=== PATIENT | male | born 1950 | race Caucasian/White ===

== ENCOUNTER 2018-03-04 17:47 | Emergency (ER) | payer OTHER ==
[~2018-03-04] VITALS: Ht 177.8 cm; Wt 83.5 kg
--- NOTE | 2018-03-04 18:13 | ED CARDIAC/CP/PALPITATIONS ---
History of Present Illness General Chief Complaint: Chest Pain Stated Complaint: CP Source: patient Exam Limitations: no limitations Allergies Coded Allergies: NO KNOWN ALLERGIES (02/24/11) Reconcile Medications Ergocalciferol (Vitamin D2) (Vitamin D2) 50,000 UNIT CAPSULE 1 CAP PO QSUN SUPPLEMENT (Reported) Triage Note: PT STATES HE ATE A LITTLE AND THEN BEGAN TO HAVE BURNING IN HIS CHEST THAT RADIATED DOWN HIS LEFT ARM AND HE BEGAN TO SWEAT A LOT. PT STATES 40 MINUTES OF PAIN WITH SOME SOB. Triage Nurses Notes Reviewed? yes Onset: Gradual Duration: hour(s): Timing: single episode today Quality/Severity: moderate, burning Location: substernal Radiation: neck, LEFT ARM Prior Chest Pain/Card Workup: no prior cardiac workup HPI: 67YO male with hx of daily tobacco use presents to ED complaining of substernal chest pain beginning about 1 hour prior to arrival around 5 PM. Pain is described as burning, 7/10, radiating towards neck and left arm, constant. Pain is associated with nausea, diaphoresis, dyspnea. Patient has no history of similar symptoms in the past. Symptom onset was eggs with bread. Patient has never seen a tavern operator in the past. He denies abdominal pain, vomiting, syncope, numbness. (Meera BENITES,Kaylie Dow) Vital Signs & Intake/Output Vital Signs & Intake/Output Vital Signs Date Time Temp Pulse Resp B/P B/P Pulse O2 O2 Flow FiO2 Mean Ox Delivery Rate 03/04 2326 71 18 103/57 94 Room Air 03/04 2235 76 111/61 03/04 2128 98.6 74 18 114/55 96 Room Air 03/04 1852 98.0 76 18 147/77 96 Room Air 03/04 1757 97.6 64 20 166/85 96 Room Air ED Intake and Output 03/05 0000 03/04 1200 Intake Total Output Total Balance Patient 184 lb Weight Weight Reported by Patient Measurement Method (Michelle MCKEON,Ricky Collins) Past History Travel History Traveled to [place] past 21 day No Medical History Any Pertinent Medical History? see below for history Other Medical Hx: psoriasis Surgical History Surgical History: non-contributory Psychosocial History Who do you live with Spouse Services at Home None What is your primary language Luxembourgish Tobacco Use: Current Daily Use Daily Tobacco Use Amount/Type: => 5 Cigarettes daily ETOH Use: denies use Illicit Drug Use: denies illicit drug use Family History Hx Contributory? No (Meera BENITES,Kaylie Dow) Review of Systems Review of Systems Constitutional: Reports: see HPI. EENTM: Reports: no symptoms. Respiratory: Reports: see HPI. Cardiovascular: Reports: see HPI. GI: Reports: see HPI. Genitourinary: Reports: no symptoms. Musculoskeletal: Reports: no symptoms. Skin: Reports: no symptoms. Neurological/Psychological: Reports: no symptoms. Hematologic/Endocrine: Reports: no symptoms. Immunologic/Allergic: Reports: no symptoms. All Other Systems: Reviewed and Negative (Meera BENITES,Kaylie Dow) Physical Exam Physical Exam General Appearance: well developed/nourished, no apparent distress, alert, awake Head: atraumatic, normal appearance Eyes: Bilateral: normal appearance. Ears, Nose, Throat: hearing grossly normal Neck: normal inspection, supple, full range of motion Respiratory: normal breath sounds, chest non-tender, no respiratory distress, lungs clear Cardiovascular: regular rate/rhythm, normal peripheral pulses Peripheral Pulses: 2+ radial (R), 2+ radial (L) Gastrointestinal: normal bowel sounds, soft, non-tender, no organomegaly Back: normal inspection, normal range of motion Extremities: normal inspection Neurologic/Psych: awake, alert, oriented x 3 Skin: intact, normal color, warm/dry Core Measures ACS in differential dx? Yes CVA/TIA Diagnosis No Sepsis Present: No Sepsis Focused Exam Completed? No (Meera BENITES,Kaylie Dow) Progress Differential Diagnosis: AMI, atrial fibrillation, CHF/pulm edema, costochondritis, musculoskeletal pain, myocarditis, pericarditis, pneumothorax, pulmonary embolism, PUD/GERD, unstable angina Diagnostic Imaging: Viewed by Me: Radiology Read. Discussed w/RAD: Radiology Read. CXR Impression: PATIENT: KANDIS DO PRESENT AGE: 67 PATIENT ACCOUNT NO: [id number] : 48 LOCATION: [facility] ORDERING PHYSICIAN: Kaylie BENITES SERVICE DATE: 03/04/18 EXAM TYPE: RAD - XRY- PORTABLE CHEST XRAY EXAMINATION: XR PORTABLE CHEST CLINICAL INFORMATION: Chest pain. COMPARISON: None TECHNIQUE: Portable frontal view of the chest was obtained. FINDINGS: The lungs are clear. No pleural effusion. Cardiomediastinal silhouette and pulmonary vasculature are within normal limits. No acute osseous finding. IMPRESSION: No acute cardiopulmonary disease. DICTATED BY: Spencer Yoon MD DATE/TIME DICTATED:03/04/181934 APPLICATION DBA:SANJAY DATE/TIME TRANSCRIBED:03/04/181934 CONFIDENTIAL, DO NOT COPY WITHOUT APPROPRIATE AUTHORIZATION. <Electronically signed in Other Vendor System> SIGNED BY: Spencer Yoon MD 03/04/181939 Initial ED EKG: SINUS RHYTHM @ 63BPM, INVERTED T WAVES LATERAL LEADS, RBBB Prior EKG: changed (2012) Repeat EKG: changed (UPRIGHT T WAVES LATERAL LEADS) (Meera BENITES,Kaylie Dow) Plan of Care: Orders Procedure Date/time Status EKG 03/04 2204 Active Add-on Test (ER Only) 03/04 2130 Active EKG 03/04 2115 Active TROPONIN LEVEL 03/04 2057 Complete EKG 03/04 2057 Active Telemetry/[place] 03/04 1813 Active PARTIAL THROMBOPLASTIN TIME 03/04 181 Complete PROTHROMBIN TIME 03/04 1813 Complete TROPONIN LEVEL 03/04 175 Complete LIPASE 03/04 175 Complete COMPREHENSIVE METABOLIC PANEL 03/04 175 Complete CBC WITHOUT DIFFERENTIAL 03/04 175 Complete AMYLASE 03/04 175 Complete EKG 03/04 175 Active Laboratory Tests 03/04/182114: Troponin I Cancelled 03/04/182109: Troponin I 0.28 *H 03/04/181812: Anion Gap 15, Estimated GFR > 60, BUN/Creatinine Ratio 12.2, Glucose 180 H, Calcium 9.7, Total Bilirubin 0.8, AST 25, ALT 30, Alkaline Phosphatase 86, Troponin I 0.02, Total Protein 8.0, Albumin 4.6, Globulin 3.4, Albumin/Globulin Ratio 1.4, Amylase 82, Lipase 67, PT 11.1, INR 1.02, APTT 33, CBC w Diff NO MAN DIFF REQ, RBC 5.39, MCV 95.2 H, MCH 32.8 H, MCHC 34.5, RDW 12.9, MPV 7.3 L, Gran % 65.6, Lymphocytes % 25.8, Monocytes % 4.7, Eosinophils % 3.5, Basophils % 0.4, Absolute Granulocytes 4.9, Absolute Lymphocytes 1.9, Absolute Monocytes 0.4 , Absolute Eosinophils 0.3, Absolute Basophils 0 Patient's initial EKG shows T-wave inversions in lateral leads. Patient's chest pain is convincing for cardiac etiology. Labs and chest x-ray are pending. Patient was medicated with aspirin 325 mg and morphine. Heart rate of 62, for this reason beta roel was held for the time being. Dr. Ospina agrees with this plan. Initial troponin enzyme negative. Patient's chest pain temporarily resolved, at that time EKG showed upright T waves in lateral leads. Shortly after this patient had onset of chest pain again 03/04. He was medicated with morphine and Nitropaste. Spoke with Dr. Hunt regarding this patient. Dr. Hunt recommends hospitalization and heparinization. Second troponin enzyme is elevated, Dr. Martinez present to see and evaluate the patient. Oscar initiated. Dr. Martinez recommends transfer to [place] for acute coronary syndrome. Dr. Martinez spoke with [facility] regarding this patient 's transfer. (Kaylie Gaytan) (Michelle MCKEON,Ricky Collins) Departure Departure Disposition: [facility] (ACUTE) Condition: Stable Clinical Impression Primary Impression: Acute coronary syndrome Secondary Impressions: Chest pain Qualifiers: Chest pain type: chest pain due to myocardial ischemia Ischemic chest pain type: unspecified angina pectoris type Qualified Code: I25.9 - Chronic ischemic heart disease, unspecified Referrals: Unruly Singh MD (PCP/Family) Departure Forms: Customer Survey General Discharge Information (Kaylie Gaytan) PA/[employer] Co-Sign Statement Statement: ED Attending supervision documentation- [x] I saw and evaluated the patient. I have also reviewed all the pertinent lab results and diagnostic results. I agree with the findings and the plan of care as documented in the PA's/[employer]'s documentation. 03/04/18, 22:17... pt with +troponin, subtle changes on EKG, merits transfer for urgent cardiac cath. discussed with duyen to, jasmyn intervenionalist, who accepts patient. [] I have reviewed the ED Record and agree with the PA's/[employer]'s documentation. [] Additions or exceptions (if any) to the PAs/CO[employer] SEAMSTR[employer]'s note and plan are summarized below: [] (Michelle MCKEON,Ricky Collins) Critical Care Note Critical Care Note Critical Care Time: 30-74 min (Meera BENITES,Kaylie Dow) Critical Care Note Critical Care Time: 30-74 min (Michelle MCKEON,Ricky Collins)
[2018-03-04 18:32] LABS: ABSOLUTE BASOPHIL COUNT 0 /CUMM (0.0-0.2); ABSOLUTE EOSINOPHIL COUNT 0.3 /CUMM (0.0-0.7); ABSOLUTE GRANULOCYTE CT 4.9 /CUMM (1.4-6.5); ABSOLUTE LYMPH COUNT 1.9 /CUMM (1.2-3.4); ABSOLUTE MONOCYTE COUNT 0.4 /CUMM (0.10-0.60); BASOPHIL % 0.4 % (0.0-2.0); EOSINOPHIL % 3.5 % (0-5); GRANULOCYTE % 65.6 % (42.2-75.2); HEMATOCRIT 51.3 % (42-52); MEAN CORPUSCULAR HGB 32.8 PG (27.0-31.0); MEAN CORPUSCULAR HGB CONC 34.5 G/DL (33.0-37.0); MEAN CORPUSCULAR VOLUME 95.2 FL (80.0-94.0); MEAN PLATELET VOLUME 7.3 FL (7.4-10.4); PLATELET COUNT 256 /CUMM (130-400); RBC DISTRIBUTION WIDTH 12.9 % (11.5-14.5); RED BLOOD CELL CT 5.39 /CUMM (4.70-6.10); WHITE BLOOD CELL COUNT 7.5 /CUMM (4.8-10.8)
--- NOTE | 2018-03-04 19:40 | RADIOLOGY REPORT ---
EXAMINATION: XR PORTABLE CHEST CLINICAL INFORMATION: Chest pain. COMPARISON: None TECHNIQUE: Portable frontal view of the chest was obtained. FINDINGS: The lungs are clear. No pleural effusion. Cardiomediastinal silhouette and pulmonary vasculature are within normal limits. No acute osseous finding. IMPRESSION: No acute cardiopulmonary disease.
[2018-03-04] MEDS ORDERED: VITAMIN D250000 UNIT PO (20:21)
--- NOTE | 2018-03-04 21:41 | History & Physical ---
Beatriz Barnett MD,Ami 03/04/182140: General Information and HPI History of Present Illness: Patient is 67 y M with no significant PMH presented to the ED with chief complaint of chest pain. Patient noted to have substernal chest pain, started around 5pm after ate, burning, 04/03, radiation to neck and left arm, lasted 40 minutes, associated with nausea, sweating and some SOB, No significant cardiac history Daily smoker denies alcohol Allergies/Medications Allergies: Coded Allergies: NO KNOWN ALLERGIES (02/24/11) Home Med list Ergocalciferol (Vitamin D2) (Vitamin D2) 50,000 UNIT CAPSULE 1 CAP PO QSUN SUPPLEMENT (Reported) Past History Travel History Traveled to [place] past 21 day No Medical History Other Medical Hx: psoriasis Surgical History Surgical History: non-contributory Past Family/Social History Psychosocial History Services at Home: None ETOH Use: denies use Illicit Drug Use: denies illicit drug use Assessment/Plan Assessment: VS, Ph Ex at admission: No fever, BP 166/85, OH 64, others are significant, saturating well in room temperature Labs at admission: WBC 7.5, Hgb 17.7, others insignificant initial TN 0.02, BEP insignificant, glucose 180, no lipase Imagings at admission: CXR: no acute pathology Patient was admitted to telemetry floor for management of following conditions: Core Measures/Misc (06/11) Cerebrovascular Accident CVA/TIA Diagnosis: No Sepsis (View protocol) If YES complete Sepsis Event Note If YES complete Sepsis Event Note Deon Quintero 03/04/186: Core Measures/Misc (06/11) Sepsis (View protocol) If YES complete Sepsis Event Note If YES complete Sepsis Event Note Resident Review Statement Resident Statement: examined this patient, discussed with business services intern, agreed with business services intern
[2018-03-04 22:09] LABS: PT 11.1 SEC (9.4-12.5); PTT 33 SEC (25-37)
[2018-03-04 23:26] VITALS: BP 103/57
== END 2018-03-05 00:13 | disposition short-term general hospital (02) ==
LOC: ERH 17:47
PROVIDERS: Emergency Medicine; Physician Assistant
DX: I24.9 Acute ischemic heart disease, unspecified (principal); R07.2 Precordial pain; F17.210 Nicotine dependence, cigarettes, uncomplicated
CPT/HCPCS: 71045; 93005; 93010; 96374; 96375; 96376; 99291; J1644; J2405; J3490